=== PATIENT | male | born 1975 | race Caucasian/White ===

== ENCOUNTER 2021-05-12 16:09 | Emergency (ER) | payer OTHER, SELFPAY ==
[2021-05-12 16:31] VITALS: BP 143/93; PULSE 99; RESP 18; TEMP 36.6; O2SAT 97; BMI 22.2
--- NOTE | 2021-05-12 20:11 | ED_ITS ---
HPI - Wound/Laceration General Chief Complaint: Wound/Laceration Stated Complaint: hand lac work inj Time Seen by Provider: 05/12/21 19:32 Source: patient Mode of arrival: ambulatory Limitations: no limitations History of Present Illness HPI narrative: 46-year-old male presenting to the ED with complaints of a laceration to his left palm that occurred prior to arrival while at work cutting with the razor blade. Reports he is up-to-date on tetanus. Denies any paresthesias or thoughts of foreign bodies or any other symptoms complaints or concerns. Onset (ago): hour(s) ( Prior to arrival) Extremity Location: left: hand Place: work Patient tetanus UTD: Yes Context: accidental Associated symptoms: none Related Data Allergies Allergy/AdvReac Type Severity Reaction Status Date / Time No Known Allergies Allergy Mild N/A Unverified 02/14/20 14:56 Review of Systems Review of Systems: Constitutional : No Fever, No Chills, Cardiovascular : No Chest Pain, No SOB Respiratory : No Dyspnea Gastrointestinal : No abdominal pain Musculoskeletal : No Joint Swelling Skin : positive skin laceration, No Foreign bodies, No rash, No surrounding erythema Neuro : No Weakness, No Numbness/tingling Psych : No SI/HI/thoughts of self injury Yes all other systems are reviewed and are negative [facility] Past Medical History Attestation statement: The following information was validated with the patient. Social History Social History Advance Directives: No Advance Directives Information Provided: Yes Physical Exam Vital Signs: Vital Signs: Last Vital Signs Temp 98 F 05/12/21 16:31 Pulse 99 05/12/21 16:31 Resp 18 05/12/21 16:31 BP 143/93 H 05/12/21 16:31 Pulse Ox 97 05/12/21 16:31 BMI result Body Mass Index 22.2 vital signs have been reviewed as normal and appeared to be correct. Blood pressure normal Heart rate normal. Respiration rate normal. Temperature normal. Oxygen saturation normal. Appearance: Alert. Oriented X3. No acute distress. Head: Normal external exam. Normocephalic. Atraumatic. Eyes: PERRLA. EOMI. Conjunctiva and sclera normal. Eyelids normal. ENT: Pharynx normal. Uvula midline. Moist mucous membranes. Neck: Normal inspection. Neck supple. FROM. CVS: Normal heart rate and rhythm. Respiratory: No respiratory distress. Painless inspiration. Skin: Skin warm and dry. Normal skin color. Normal skin turgor. to left hand palmar aspect patient has a 2 cm intermediate laceration no active bleeding or foreign bodies noted. No obvious ligamentous or tendon or nerve injury noted. Otherwise no additional rashes/lesions/lacerations noted. Extremities: patient has full range of motion of the left hand/ finger/wrist joint. Otherwise all other Extremities exhibit normal range of motion and nontender. Neuro: Oriented X 3. No motor deficit. No sensory deficit. Reflexes normal. Normal steady gait. No focal neuro deficits noted. Vascular: + radial pulses/+ 2 distal pedal pulses/+2 dorsalis pedis b/l. Normal cap refill. No cyanosis noted to upper extremity nails and lower extremity toes nails. MDM - Wound/Laceration MDM Narrative Medical decision making narrative: 46-year-old male presenting to the ED after work related injury with a razor blade laceration to left palmar aspect. 3 cm laceration. No active bleeding or foreign bodies. Patient now status post laceration repair. Patient tolerated procedure well. No complications. Will DC home with instructions return in 10 days for suture removal and to follow-up with [facility] and PCP. Patient understands agrees with this plan. Medical Records Attestation: I reviewed the patient's medical records. Procedures Laceration Laceration 1: Site: hand Side (If applicable): left Size (cm): 3 Description: linear Depth: simple, single layer Local Anesthetic: lidocaine 1% Amount of anesthesia used (mL): 5 Pre-repair: wound explored, irrigated extensively and deep structures intact Skin layer closed with: nylon Size (cm): 4-0 Number of sutures: 5 Technique: simple, interrupted Discharge Plan Discharge Clinical Impression: Laceration Patient Disposition: Home, Self-Care Instructions: Laceration (ED) Referrals: [facility] [Provider Group] - 2 days Fallon Massey PA [Emergency Midlevel Provider] - 10 days (for suture removal) Victor M Lazo FNP [Primary Care Provider] - 2 days Stand Alone Forms: Work/School Release Print Language: Vietnamese
[2021-05-12] MEDS: Lidocaine HCl 2 % MPF 5 ML VIAL SUBCUT (20:56)
--- NOTE | 2021-05-12 21:00 | PC.NURSE ---
Discharged at this time. Prior to DC bacitracin, non stick gauze and belkis applied to sutured wound. Pt vebalized an understanding for proper sutured wound care.
== END 2021-05-12 21:01 | disposition home or self-care (01) ==
PROVIDERS: Emergency Provider Emergency Medicine; PCP Nurse Practitioner Family
DX: S61.412A Laceration without foreign body of left hand, initial encounter (principal); W27.8XXA Contact with other nonpowered hand tool, initial encounter; Y93.9 Activity, unspecified; Y92.9 Unspecified place or not applicable; Y99.0 Civilian activity done for income or pay
CPT/HCPCS: 12042; 99283; 99284

== ENCOUNTER 2023-02-16 21:10 | Emergency (ER) | payer MEDICARE, MEDICAID, SELFPAY ==
--- NOTE | 2023-02-16 | ECG_ITS ---
Test Reason : CHEST PAIN Blood Pressure : / mmHG Vent. Rate : 061 BPM Atrial Rate : 061 BPM P-R Int : 182 ms QRS Dur : 096 ms QT Int : 460 ms P-R-T Axes : 078 081 245 degrees QTc Int : 463 ms Normal sinus rhythm Possible Left atrial enlargement T wave abnormality, consider inferolateral ischemia Prolonged QT Abnormal ECG No previous ECGs available Referred By: Generic ED Physician Electronically Signed By:ARCHIE DERAS
--- NOTE | ~2023-02-16 | XR_ITS ---
EXAMINATION: XR CHEST CLINICAL INFORMATION: Chest pain. COMPARISON: None available. TECHNIQUE: Frontal view of the chest was obtained. FINDINGS: The cardiomediastinal silhouette is stable. There is a retrocardiac opacity. There is lower lung field increased markings particularly on the right. There is blunting of the costophrenic angles. The bony structures and soft tissues are unremarkable. XR/XR chest 1V IMPRESSION: Retrocardiac opacity possibly atelectasis or infiltrate. Lower lung field increased markings particularly on the right uncertain significance. Blunted costophrenic angles possibly chronic versus minimal pleural fluid.
[2023-02-16 21:29] VITALS: BP 120/86; BP 126/80; PULSE 61; PULSE 70; RESP 17; TEMP 36.6; O2SAT 99; BMI 22.6
--- NOTE | 2023-02-16 22:28 | ED_ITS ---
HPI - General Adult General Chief complaint: General Medical Stated complaint: nausea, vomiting, diarrhea, dizziness Time Seen by Provider: 02/16/23 22:28 Source: patient, EMS, RN notes reviewed and old records reviewed Mode of arrival: EMS History of Present Illness HPI narrative: 47-year-old male with a past medical history of CKD, cardiomyopathy, alcohol induced liver cirrhosis, presenting to the ED via EMS complaining of left-sided chest pain radiating down LUE with associated SOB, lightheadedness, nausea, vomiting, and diarrhea beginning around 18:30 tonight. Also reports sweats/chills. Reports symptoms have mostly improved at present except for persistent nausea. Denies abdominal pain, dysuria/hematuria, fever/chills, suspicious food intake, recent travel, sick contacts, pedal edema Related Data Previous Rx's Medication Instructions Recorded azithromycin 250 mg tablet See Rx Instructions PO .COMPLEX #6 02/17/23 tabs Allergies Allergy/AdvReac Type Severity Reaction Status Date / Time No Known Allergies Allergy Mild N/A Unverified 02/14/20 14:56 Review of Systems 2 Review of Systems: Constitutional: No Fever, + Chills, No Night Sweats, +Fatigue, No Malaise ENT/Mouth: No Ear Pain, No Nasal Congestion, No sore throat, No Rhinorrhea, No Swallowing Difficulty Eyes: No Eye Pain, No Swelling, No Redness, No Vision Changes Cardiovascular: + Chest Pain, + SOB, No Edema, No Palpitations Respiratory: + Cough, No Sputum, No Dyspnea Gastrointestinal: + Nausea, + Vomiting, + Diarrhea, No Constipation, No Abdominal pain Genitourinary: No Dysuria, No Urinary Frequency, No Hematuria, No Urinary Incontinence/retention, No Urgency, No Flank Pain Musculoskeletal: No joint pain, No Myalgias, No Joint Swelling Skin: No Skin Lesions, No rash Neuro: + Weakness, No Numbness, No Paresthesias, No Loss of Consciousness, + lightheadedness, No Headache Yes all other systems are reviewed and are negative Constitutional: Constitutional: Reports as per [facility] Past Medical History Attestation statement: The following information was validated with the patient. Source: old records reviewed Social History Social History Alcohol intake: former Smoked in Last 30 Days: No Use of substances other than those prescribed or required for medical reasons: No Advance Directives: No Advance Directives Information Provided: No Physical Exam ED Vital Signs: Vital Signs - 24 hr 02/16/23 21:29 02/16/23 23:05 02/16/23 23:05 Temperature 97.8 F Pulse Rate 61 63 74 Respiratory Rate 17 Blood Pressure 120/86 104/80 106/79 Pulse Oximetry 99 Oxygen Delivery Method Room Air 02/16/23 23:07 02/17/23 00:22 02/17/23 02:21 Temperature 97.8 F 97.8 F Pulse Rate 66 71 71 Respiratory Rate 12 13 Blood Pressure 123/84 127/81 135/93 H Pulse Oximetry 94 97 Oxygen Delivery Method Room Air Room Air 02/17/23 05:30 Temperature 97.7 F Pulse Rate 80 Respiratory Rate 15 Blood Pressure 117/80 Pulse Oximetry 95 Oxygen Delivery Method Room Air BMI result Body Mass Index 22.6 Const General: cooperative, healthy appearing and no acute distress Orientation/consciousness: patient oriented x3 Limitations: no limitations HENMT Head: Yes normal to inspection and Yes atraumatic Ears: hearing grossly normal bilaterally General nose exam: Normal external nose present Face and sinus: Yes normal facial exam Eyes General: appearance normal, both eyes and all related structures EOM: EOMs intact bilaterally Neck Neck: Yes normal visual inspection and Yes no meningeal signs Resp Effort & Inspection: normal respiratory effort and no respiratory distress Auscultation: clear to auscultation bilaterally, no crackles and no wheezes Cardio Rate: regular rate Heart sounds: S1 normal heart sound present and S2 normal heart sound present GI Inspection: Yes normal to inspection Palpation (GI): Soft to palpation, nontender, no guarding and not rigid General: Yes no CVA tenderness Back/Spine/Pelvis Back: no CVA tenderness Skin Rashes: no rashes Wounds: no wounds Neuro General: patient oriented x3, tone normal and no meningeal signs Cranial nerves: Yes CN's II-XII intact bilaterally Gait exam (Neuro): Normal gait present Extrem General: Yes normal to inspection, Yes no pedal edema and Yes no calf tenderness Course Course Course Narrative: -0151--no leukocytosis. BUN 26, creatinine 1.59 > patient with known CKD, unsure baseline >> will repeat after IVF. -Magnesium low 1.42 g IV repletion ordered. Tox screen positive for cocaine and THC -initial troponin 4.6 >> will obtain 3 hour repeat XR chest 1V IMPRESSION: Retrocardiac opacity possibly atelectasis or infiltrate. Lower lung field increased markings particularly on the right uncertain significance. Blunted costophrenic angles possibly chronic versus minimal pleural fluid. > low suspicion for acute infiltrate with patient's symptoms and no leukocytosis >however will dispo w/Z-beth -1238--ED care transferred to Dr. Eldridge pending repeat trop & BMP. Anticipated discharge pending results Medications Administered Discontinued Medications Generic Name Dose Route Start Last Admin Trade Name Freq PRN Reason Stop Dose Admin Sodium Chloride 1,000 mls @ 999 mls/hr 02/16/23 23:00 02/17/23 00:22 Ns IV 02/17/23 00:00 Infused .Q1H1M EDD Infusion Magnesium Sulfate 2 gm in 50 mls @ 25 mls/hr 02/17/23 00:03 02/17/23 02:30 Magnesium Sulfate/H2o IV 02/17/23 02:02 Infused ONCE ONE Infusion Sodium Chloride 1,000 mls @ 999 mls/hr 02/17/23 00:15 02/17/23 01:23 Ns IV 02/17/23 01:15 Infused .Q1H1M EDD Infusion Ondansetron HCl 4 mg 02/16/23 22:46 02/16/23 23:04 Ondansetron Hcl 4 Mg/2 Ml Vial IVPUSH 02/16/23 22:47 4 mg ONCE ONE Administration Medical Decision Making Medical Decision Making MDM Narrative: 47-year-old male with a past medical history of CKD, cardiomyopathy, alcohol induced liver cirrhosis, presenting to the ED via EMS complaining of left-sided chest pain radiating down LUE with associated SOB, lightheadedness, nausea, vomiting, and diarrhea beginning around 18:30 tonight. Chest pain resolved at present. On exam vital signs stable, NAD, nontoxic appearing, lungs CTA. No pedal edema. No focal deficits. Concern for ACS vs substance abuse vs gastroenteritis vs metabolic abnormalities. Lower suspicion for pneumonia, PE/CHF, appendicitis/diverticulitis without tenderness on exam. Unlikely CVA/TIA Plan: EKG, labs, UA, CXR, IVF, antiemetic, re-evaluate Please refer to course for remaining clinical decision making, interpretation of labs/imaging results, and discussions with consultants and/or family members. -I received sign-out from URIEL Whitfield -2nd chemistry, creatinine improved, troponin flat, vital stable Differential Diagnosis Differential Diagnoses: The differential diagnosis associated with the presentation includes As above Admission/Observation Consideration of admission/observation: Escalation of care including admission/observation considered Lab Data MDM Lab Attestation statement: I reviewed the patient's lab results. 02/16/23 23:14 02/17/23 02:26 Labs: Lab Results 02/16/23 02/17/23 Range/Units 23:14 02:26 WBC 7.2 (4.8-10.8) X10*3/uL RBC 3.76 L (4.60-5.80) X10*6/uL Hgb 12.2 L (14.0-18.0) g/dl Hct 36.7 L (42.0-52.0) % MCV 97.6 (80.0-98.0) fL MCH 32.4 (27.0-33.0) pg MCHC 33.2 (31.0-36.0) g/dl RDW 19.4 H (11.0-16.0) % Plt Count 115 L (160-400) X10*3/uL MPV 12.1 (9.4-12.4) fL Immature Gran % (Auto) Cancelled Neut % (Auto) Cancelled Lymph % (Auto) Cancelled [place] % (Auto) Cancelled Eos % (Auto) Cancelled Baso % (Auto) Cancelled Lymph # (Auto) Cancelled [place] # (Auto) Cancelled Eos # (Auto) Cancelled Baso # (Auto) Cancelled Abs Immat Gran (auto) Cancelled Absolute Neuts (auto) Cancelled Absolute Nucleated RBC 0.000 (0.0-0.012) X10*3/uL Nucleated RBC % (auto) 0.0 (0.0-0.2) /100WBC Neutrophils % (Manual) 64 (45-73) % Band Neutrophils % 1 L (3-5) % Lymphocytes % (Manual) 23 (20-40) % Monocytes % (Manual) 6 (2-11) % Eosinophils % (Manual) 4 (0-4) % Basophils % (Manual) 2 (0-2) % Abs Neuts (Manual) 4.7 (2.0-8.3) X10*3/uL Lymphocytes # (Manual) 1.7 (1.2-4.9) X10*3/uL Monocytes # (Manual) 0.4 (0.1-1.2) X10*3/uL Eosinophils # (Manual) 0.3 (0.0-0.4) X10*3/uL Basophils # (Manual) 0.1 (0.0-0.2) X10*3/uL Platelet Estimate SLIGHTLY DECREASED (NORMAL) Large Platelets PRESENT Plt Morphology Comment NOTED RBC Morphology NOTED Macrocytosis 1+ (5-14) /OIF Rouleaux PRESENT Sodium 142 140 (135-145) mmol/L Potassium 4.5 4.4 (3.3-5.1) mmol/L Chloride 104 109 H (96-108) mmol/L Carbon Dioxide 26 21 L (22-29) mmol/L Anion Gap 17 14 (12-20) BUN 26 H 22 H (9-16) mg/dL Creatinine 1.59 H 1.38 (0.5-1.4) mg/dL Estim Creat Clear Calc 52.2 60.1 Estimated GFR 47 55 Random Glucose 96 85 (60-115) mg/dL Calcium 9.2 8.4 D (8.4-10.2) mg/dL Magnesium 1.4 L* (1.6-2.6) mg/dL Total Bilirubin 0.4 (0.0-1.0) mg/dL AST 31 (5-37) U/L ALT 15 (0-40) U/L Alkaline Phosphatase 87 (39-117) U/L Troponin I High Sens 4.6 2.9 (<3.5-35.0) ng/L Total Protein 7.1 (6.5-8.0) g/dL Albumin 3.9 (3.5-5.0) g/dL Lipase 54 (8-78) U/L Urine Color Yellow Urine Appearance Clear Urine pH 7.0 (5.0-9.0) Ur Specific [place] 1.020 (1.005-1.025) Urine Protein 30 (1+) H (Neg-Trace) mg/dL Urine Glucose (UA) Negative (Negative) mg/dL Urine Ketones Negative (Negative) mg/dL Urine Blood Negative (Negative) Urine Nitrite Negative (Negative) Ur Leukocyte Esterase Negative (Negative) Urine RBC 0-2 (0-2) /HPF Urine WBC 0-5 (0-5) /HPF Ur Squamous Epith Cells 0-2 (0-2) /HPF Urine Bacteria None Seen (None Seen) Hyaline Casts 0-2 (0-2) /LPF Urine Opiates Screen Not Detected (Not Detect) Urine Fentanyl Screen Not Detected (Not Detect) Ur Barbiturates Screen Not Detected (Not Detect) Ur Phencyclidine Scrn Not Detected (Not Detect) Ur Amphetamines Screen Not Detected (Not Detect) U Benzodiazepines Scrn Not Detected (Not Detect) Urine Cocaine Screen POSITIVE H (Not Detect) U Marijuana (THC) Screen POSITIVE H (Not Detect) COVID-19 (RAMSES) Negative (Negative) COVID-19 Clin Com See Note Influenza Type A (MARCI) Negative (Negative) Influenza Type B (MARCI) Negative (Negative) Influenza A & B Note See Note Independent Interpretation I performed an independent interpretation of an: EKG (EKG normal sinus rhythm at a rate of 61. QRS 96. QTC 463. Inverted T-waves in leads 2, 3, AVF, V4 through V6. No priors to compare) Radiology Impression Discussion of test interpretation with radiology: I have reviewed the radiologist's reading. Independent Historian Clinical information obtained from an independent historian. History obtained from or confirmed by: EMS External Record Review External record reviewed: Inpatient record, Office record, Outpatient record, Prior outpatient labs, Prior outpatient radiology, Primary care record and Outside ED record Tests considered The following testing was considered but not selected: As above Chronic Conditions Patient?s care impacted by: Other (Alcoholic cirrhosis, cardiomyopathy, CKD) Discharge Plan Discharge Clinical Impression: Chest pain, Nausea & vomiting, Lightheaded Patient Disposition: Home, Self-Care Instructions: Chest Pain (DC), Acute Nausea and Vomiting (ED), Lightheadedness (ED) Additional Instructions: Your blood work was reassuring Your x-ray showed possible pneumonia, this is not highest on our differential however Zithromax in is antibiotic, please take as prescribed Please have close follow-up with her doctor and Cardiology If symptoms persist, recur, worsen, if constant worsening chest pain/shortness of breath, abdominal pain, persistent nausea/vomiting please return to the ED Avoid drug use Prescriptions: New azithromycin 250 mg tablet See Rx Instructions .ROUTE .COMPLEX Qty: 6 0RF Rx Instructions: take 500 mg today (day 1), then 250 mg for 4 days (days 2-5) Referrals: Victor M Lazo FNP [Primary Care Provider] - 3 days
[2023-02-16] MEDS: ondansetron HCL 4 MG/2 ML VIAL IVPUSH (23:04)
[2023-02-16 23:05] VITALS: BP 104/80; BP 106/79; PULSE 63; PULSE 74
[2023-02-16 23:07] VITALS: BP 123/84; PULSE 66
[2023-02-16] MEDS: 0.9 % Sodium Chloride 1,000 ML 999 ML IV (23:18)
[2023-02-16 23:23] LABS: Hematocrit 36.7 % (42.0-52.0); Hemoglobin 12.2 g/dl (14.0-18.0); Mean Corpuscular HGB Conc 33.2 g/dl (31.0-36.0); Mean Corpuscular Hemoglobin 32.4 pg (27.0-33.0); Mean Corpuscular Volume 97.6 fL (80.0-98.0); Mean Platelet Volume 12.1 fL (9.4-12.4); Platelet Count 115 X10*3/uL (160-400); Red Blood Count 3.76 X10*6/uL (4.60-5.80); Red Cell Distribution Width 19.4 % (11.0-16.0); WBC ABN SCTR FOR CBC 1
[2023-02-16 23:24] LABS: Appearance Urine Clear; Color Urine Yellow; Glucose Urine UA Negative (Negative); Leukocyte Esterase Urine Negative (Negative); Nitrite Urine Negative (Negative); UMIC TRIGGER UACC YES; Urine Blood Negative (Negative); Urine Ketones Negative (Negative); Urine Protein 30 (1+) mg/dL (Neg-Trace)
[2023-02-16 23:25] LABS: White Blood Count 7.2 X10*3/uL (4.8-10.8)
[2023-02-16 23:29] LABS: Bacteria Urine None Seen (None Seen); Hyaline Casts Urine 0-2 /LPF (0-2); RBC Urine 0-2 /HPF (0-2); Squamous Epithelial Cell Urine 0-2 /HPF (0-2); WBC Urine 0-5 /HPF (0-5)
--- NOTE | 2023-02-16 23:31 | PC.NURSE ---
Pt AOx4, pt ambulated from EMS stretcher with a steady gait, pt denies pain, pt has had 2 episodes of vomiting with yellow emesis. Reports left sided burning CP that radiates to left arm. Pt states it feel jittery. Pt placed on bedside monitor, EKG obtained and reviewed by provider. IV line placed in left forearm, labs collected and sent to lab, meds given per JUL. Orthostatic vitals obtained.
[2023-02-16 23:38] LABS: COVID-19 Test Negative (Negative); IDNOW Serial# 08D9AD1C; IDNOW Serial# BCCEAD1C; Influenza A Negative (Negative); Influenza B2 Negative (Negative)
[2023-02-16 23:40] LABS: Amphetamine Screen Urine Not Detected (Not Detect); Barbiturates, Urine Not Detected (Not Detect); Benzodiazepines Screen Urine Not Detected (Not Detect); Cannabinoid Screen Urine POSITIVE (Not Detect); Cocaine Screen Urine POSITIVE (Not Detect); Fentanyl, urine Not Detected (Not Detect); Opiate Screen Urine Not Detected (Not Detect); Phencyclidine Screen Urine Not Detected (Not Detect)
[2023-02-16 23:44] LABS: Band Neutrophils Percent 1 % (3-5); Basophils Abs Manual 0.1 X10*3/uL (0.0-0.2); Basophils Percent Manual 2 % (0-2); Eosinophils Absolute Manual 0.3 X10*3/uL (0.0-0.4); Eosinophils Percent Manual 4 % (0-4); Lymphocytes Absolute Manual 1.7 X10*3/uL (1.2-4.9); Lymphocytes Percent Manual 23 % (20-40); Monocytes Absolute Manual 0.4 X10*3/uL (0.1-1.2); Monocytes Percent Manual 6 % (2-11); Neutrophils Absolute Manual 4.7 X10*3/uL (2.0-8.3); Neutrophils Percent Manual 64 % (45-73)
[2023-02-16 23:45] LABS: Large Platelet PRESENT; Macrocytosis 1+ (5-14) /OIF; Platelet Estimate SLIGHTLY DECREASED (NORMAL); Platelet Morphology Comment NOTED; RBC Morphology NOTED; Rouleau PRESENT
[2023-02-16 23:59] LABS: Troponin-I High Sensitivity 4.6 ng/L (<3.5-35.0)
[2023-02-17 00:03] LABS: Alanine Aminotransferase 15 U/L (0-40); Albumin Level 3.9 g/dL (3.5-5.0); Alkaline Phosphatase 87 U/L (39-117); Anion Gap 17 (12-20); Aspartate Amino Transferase 31 U/L (5-37); Bilirubin Total 0.4 mg/dL (0.0-1.0); Blood Urea Nitrogen 26 mg/dL (9-16); Calcium 9.2 mg/dL (8.4-10.2); Carbon Dioxide 26 mmol/L (22-29); Chloride 104 mmol/L (96-108); Creatinine Clr Calc Pharmacy 52.2; Estimated Glomerular Filt Rate 47; Glucose Random 96 mg/dL (60-115); Lipase 54 U/L (8-78); Magnesium 1.4 mg/dL (1.6-2.6); Potassium 4.5 mmol/L (3.3-5.1); Sodium 142 mmol/L (135-145); Total Protein 7.1 g/dL (6.5-8.0)
[2023-02-17] MEDS: Magnesium Sulfate/H2O 2 GM/50 ML PIGGYBACK IV (00:19)
[2023-02-17 00:22] VITALS: BP 127/81; PULSE 71; RESP 12; TEMP 36.6; O2SAT 94
[2023-02-17] MEDS: 0.9 % Sodium Chloride 1,000 ML 999 ML IV (00:22)
[2023-02-17 02:21] VITALS: BP 135/93; PULSE 71; RESP 13; TEMP 36.6; O2SAT 97
[2023-02-17 02:46] LABS: Anion Gap 14 (12-20); Blood Urea Nitrogen 22 mg/dL (9-16); Calcium 8.4 mg/dL (8.4-10.2); Carbon Dioxide 21 mmol/L (22-29); Chloride 109 mmol/L (96-108); Creatinine Clr Calc Pharmacy 60.1; Estimated Glomerular Filt Rate 55; Glucose Random 85 mg/dL (60-115); Potassium 4.4 mmol/L (3.3-5.1); Sodium 140 mmol/L (135-145)
[2023-02-17 02:53] LABS: Troponin-I High Sensitivity 2.9 ng/L (<3.5-35.0)
[2023-02-17 05:30] VITALS: BP 117/80; PULSE 80; RESP 15; TEMP 36.5; O2SAT 95
== END 2023-02-17 06:07 | disposition home or self-care (01) ==
PROVIDERS: Physician Assistant; Emergency Provider Emergency Medicine Emergency Medical Services; PCP Nurse Practitioner Family
DX: R11.2 Nausea with vomiting, unspecified (principal); R42 Dizziness and giddiness; R07.89 Other chest pain; Z20.822 Contact with and (suspected) exposure to COVID-19; Z20.828 Contact with and (suspected) exposure to other viral communicable diseases; Z79.899 Other long term (current) drug therapy
CPT/HCPCS: 36415; 71045; 80048; 80053; 80307; 81001; 83690; 83735; 84484; 85007; 85027; 87502; 87635; 93005; 96361; 96374; 96375; 99285; J2405; J3475